=== PATIENT | male | born 1990 | race African-American/Black ===

== ENCOUNTER 2021-05-07 07:22 | Emergency (ER) | payer MEDICAID ==
[~2021-05-07] VITALS: Ht 185.4 cm; Wt 97.0 kg
--- NOTE | 2021-05-07 07:42 | PHYS DOC ---
Adult General Chief Complaint Chief Complaint: PUNCTURE WOUND HPI HPI Patient is a healthy 31-year-old male presenting for laceration. This was suffered while working yesterday evening. He works at local [employer] and states that a colleague had a cooking knife out when he was walking quickly pas sed said individual and accidentally got poked in right anterior thigh. Reports he had a superficial laceration that stopped bleeding after 5 minutes of direct pressure. Reports he woke up today with concern that wound was large enough to require repair prompting him to come in for evaluation. He has no other medical conditions. Last tetanus is unknown Review of Systems Review of Systems Fourteen body systems of review of systems have been reviewed. See HPI for pertinent positives and negative responses, other hardwick all other systems are negative, non-pertinent or non-contributory Physical Exam Physical Exam Constitutional: Well developed, well nourished, no acute distress, non-toxic appearance. HENT: Normocephalic, atraumatic, bilateral external ears normal, oropharynx moist, no oral exudates, nose normal. Eyes: PERRLA, EOMI, conjunctiva normal, no discharge. There is chronic left eye abnormality that is at baseline per patient Neck: Normal range of motion, no tenderness, supple, no stridor. Cardiovascular: Heart rate regular per monitor Lungs & Thorax: No respiratory distress or accessory muscle use, bilateral chest rise Abdomen: Abdomen soft, non-tender, bowel sounds present in all quadrants, no guarding or rebound, nonacute abdomen. Skin: Warm, dry, no erythema, no rash. Superficial laceration present to right anterior thigh as described in suture repair note. Back: No tenderness, no CVA tenderness. Extremities: No tenderness, no cyanosis, no clubbing, ROM intact, no edema. Neurologic: Alert and oriented X 3, normal motor & sensory function, no focal deficits noted. Psychologic: Affect normal, judgement normal, mood normal. Current Patient Data Vital Signs Vital Signs Date Time Temp Pulse Resp B/P (MAP) Pulse Ox O2 Delivery O2 Flow Rate FiO2 05/07/21 07:44 100.0 100 18 152/89 (110) 100 Vital Signs Date Time Temp Pulse Resp B/P (MAP) Pulse Ox O2 Delivery O2 Flow Rate FiO2 05/07/21 07:44 100.0 100 18 152/89 (110) 100 EKG EKG [] Radiology/Procedures Radiology/Procedures [] Heart Score C/O Chest Pain: No Risk Factors: Risk Factors: DM, Current or recent (<one month) smoker, HTN, HLP, family hist ory of CAD, obesity. Risk Scores: Risk Factors: DM, Current or recent (<one month) smoker, HTN, HLP, family history of CAD, obesity. Course & Med Decision Making Course & Med Decision Making Pertinent Labs and Imaging studies reviewed. (See chart for details) [] Dragon Disclaimer Dragon Disclaimer ABCs unremarkable HPI physical exam and comprehensive ER work-up nonconcerning for any emergent or surgical issues Patient had superficial laceration to right anterior thigh that was sutured shut today without complication No indication for antibiotics. Tetanus updated. Supportive care practices, wound care hygiene and need for evaluation for consideration of suture removal in 7 to 10 days advised prior to ER departure Laceration Repair Lac Repair Indication: Superficial laceration 1 cm in length present to right anterior thigh Procedure: The patient was placed in the appropriate position and alcohol prep pad was used to cleanse entire region. Anesthesia around the right anterior thigh wound was applied, a total of 2 cc 1% lidocaine in total. The area was then irrigated extensively with waiting saline solution and explored with no obvious foreign body or penetration past subcutaneous fat. The laceration was closed with x1 figure 8 suture using 4.0 nonabsorbable Prolene. The wound area was then dressed with triple antibiotic ointment and appropriate covering. Total repaired wound length: 1 cm. Other Items: None The patient tolerated the procedure well. Complications: None. Departure Departure: Impression: Primary Impression: Superficial laceration of thigh Disposition: 01 HOME / SELF CARE / HOMELESS Condition: STABLE Referrals: PCP,NO (PCP) Patient Instructions: Laceration Care, Adult Additional Instructions: You were seen for a laceration. Keep the area clean and dry. You should return to the ED or your PCP office to get your sutures removed in 7-10 days. Return to the ED immediately if you develop any signs of infection like increased pain, redness, fever, or purulent (pus) drainage. Do not take baths, submerge the wound, or use a hot tub until your stitches are removed and the wound is healed. IVAN CLARK DO May 07, 2021 07:42
[2021-05-07 07:44] VITALS: BP 152/89
[2021-05-07] MEDS ORDERED: DIPHTH,PERTUSS(ACELL),TET TOX 0.5 ML DISP.SYRIN. VAX IM ONE (08:00)
[2021-05-07] MEDS ORDERED: NEOMY/BACITR/POLYMYXIN OINT PACKET. TP ONE (08:15)
[2021-05-07] MEDS ORDERED: ACETAMINOPHEN 500 MG TABLET PO ONE (08:30)
== END 2021-05-07 08:33 | disposition home or self-care (01) ==
LOC: ER 07:22
DX: S71.111A Laceration without foreign body, right thigh, initial encounter (principal); W26.0XXA Contact with knife, initial encounter; Y93.G3 Activity, cooking and baking; Y92.89 Other specified places as the place of occurrence of the external cause; Y99.8 Other external cause status
CPT/HCPCS: 12001; 90471; 90715; 99283